=== PATIENT | female | born 1970 | race African-American/Black ===

== ENCOUNTER 2023-12-13 13:25 | Outpatient (CLI) | payer BC, SELFPAY ==
--- NOTE | ~2023-12-13 | XR_ITS ---
XR shoulder RT min 2V Ordering provider: Rodrick Jean MD History: . M25.511 - Pain in right shoulder . Comparison: None. FINDINGS: BONES: Lucency seen in the subcapital area of the humerus which may indicate a fracture. 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 Longitudinal Lucency also seen in the humerus which may indicate a fracture. Fracture of the posterior glenoid is also noted. No dislocati on. JOINT SPACES: The acromioclavicular joint is normal. The glenohumeral joint is normal. SOFT TISSUES: Normal. IMPRESSION: Transverse and longitudinal lucency is in the humeral head which may indicate a fracture. Fracture of the posterior glenoid. Follow-up CT is advised. Reviewed, dictated and finalized at location A.
== END 2023-12-13 13:26 | disposition home or self-care (01) ==
LOC: MICIMG 13:28
PROVIDERS: PCP Emergency Medicine; Visit Provider Emergency Medicine
DX: S42.141A Displaced fracture of glenoid cavity of scapula, right shoulder, initial encounter for closed fracture (principal); X58.XXXA Exposure to other specified factors, initial encounter; M25.511 Pain in right shoulder
CPT/HCPCS: 73030

== ENCOUNTER 2024-06-03 11:51 | Outpatient (CLI) | payer BC, SELFPAY ==
--- NOTE | ~2024-06-03 | XR_ITS ---
XR facial bones min 3V 06/03/2024 12:10 Indication: Headache Procedure: 4 views of the facial Comparison: No prior studies for comparison. Findings: There is no significant mucosal thickening. No air-fluid level. Leftward nasal septal devia tion. Mastoids appear pneumatized. No fracture or traumatic malalignment. No focal soft tissue abnorm ality. Impression: 1: No significant sinus disease. No acute abnormality of the facial bones. Reviewed, dictated and finalized at location B. Impression: 1: No significant sinus disease. No acute abnormality of the facial bones.
== END 2024-06-03 11:52 | disposition home or self-care (01) ==
PROVIDERS: PCP Emergency Medicine; Visit Provider Emergency Medicine
DX: R51.9 Headache, unspecified (principal)
CPT/HCPCS: 70150

== ENCOUNTER 2024-09-01 10:35 | Outpatient (CLI) | payer BC, SELFPAY ==
--- NOTE | ~2024-09-01 | XR_ITS ---
Right Knee Technique: AP and lateral views were obtained. Clinical History: Pain Findings: No fracture or dislocation is seen. Osseous alignment is anatomic. There is minimal spurrin g at the medial joint line. Soft tissues are unremarkable. No joint effusion is seen. Impression: Minimal spurring at the medial joint line Reviewed, dictated and finalized at [facility]. Impression: Minimal spurring at the medial joint line
== END 2024-09-01 10:36 | disposition home or self-care (01) ==
LOC: MICIMG 10:36
PROVIDERS: PCP Emergency Medicine; Visit Provider Emergency Medicine
DX: M25.761 Osteophyte, right knee (principal)
CPT/HCPCS: 73560

== ENCOUNTER 2025-01-30 15:06 | Outpatient (CLI) | payer BC, SELFPAY ==
--- NOTE | ~2025-01-30 | MR_ITS ---
EXAMINATION: MR knee RT wo/w con DATE: 01/30/2025 16:38 INDICATION: Right knee pain TECHNIQUE: Magnetic resonance imaging (MRI) of the right knee was performed without and with 15 mL Multihance intravenous contrast. Sequences included coronal PD-weighted FSE, coronal PD-weighted FS FSE, sagittal T2-weighted FSE, sagittal PD-weighted FS FSE, axial PD weighted fat saturated FSE, axial T1- weighted FS FSE and postcontrast axial, sagittal and coronal T1-weighted FS FSE. COMPARISON: None. FINDINGS: Medial compartment: Medial meniscus is normal. Articular cartilage is normal. Lateral compartment: Lateral meniscus is normal. There is amorphous increased signal at the anterior horn of the lateral meniscus consistent with complex tear with a couple tiny para meniscal cysts along the periphery of the anterior horn. There is a small displaced bucket-handle flap extending anteroposteriorly along the overlying the lateral aspect of the intercondylar eminence. Partial-thickness chondral ulceration along the anterior weightbearing lateral femoral condyle. Additional less severe partial thickness cartilage loss at the central aspect of the lateral tibial plateau and extending along the shoulder the intercondylar eminence. Patellofemoral compartment: There is deep chondral fissuring without degenerative subchondral changes at the medial patellar facet and caudal half of the apical ridge. Additional deep chondral fissure at the inferior aspect of the medial trochlea. Ligaments and tendons: Anterior and posterior cruciate ligaments are normal. The medial collateral ligament and fibular collateral ligament complex are normal. The extensor mechanism is normal. The visualized medial and lateral hamstring tendons as well as the iliotibial band are normal. Fluid: Moderate sized left knee joint effusion. No loose osteochondral bodies identified. There is also a moderate-sized Suarez's cyst measuring 5.8 x 3.2 x 2.1 cm. Osseous/other: Normal marrow signal. No fracture or pathologic marrow replacing process. No abnormally enhancing soft tissue masses. IMPRESSION: 1. Complex tear of the lateral meniscus with macerated appearance to the anterior horn and with small medially displaced bucket-handle flap extending anteroposteriorly along the lateral aspect of the intercondylar eminence. 2. Mild osteoarthritis with moderate grade chondromalacia in the lateral and patellofemoral compartments. 3. Moderate-sized right knee joint effusion and moderate-sized Suarez's cyst. Reviewed, dictated and finalized at location A. [employer] IMPRESSION: 1. Complex tear of the lateral meniscus with macerated appearance to the anteri or horn and with small medially displaced bucket-handle flap extending anteropo steriorly along the lateral aspect of the intercondylar eminence. 2. Mild osteoarthritis with moderate grade chondromalacia in the lateral and pa tellofemoral compartments. 3. Moderate-sized right knee joint effusion and moderate-sized Suarez's cyst.
--- NOTE | ~2025-01-30 | MR_ITS ---
EXAMINATION: MR cervical spine wo/w con DATE: 01/30/2025 16:39 INDICATION: Neck pain. No history of trauma or C-spine surgery. TECHNIQUE: Magnetic resonance imaging (MRI) of the cervical spine was performed including postcontrast series with MultiHance intravenous contrast. Sequences included sagittal T2-weighted FSE, sagittal T2-weighted FS FSE, sagittal T1- weighted FSE, axial MERGE, and axial T2-weighted FSE. COMPARISON: None FINDINGS: No acute bony lesions out cervical vertebrae. Structures of the foramen magnum are normal in the sagittal and axial views. No focal lesions out C2-3 disc. At C3-4 level, mild left foraminal narrowing due to asymmetric bulging annulus. At C4-5 level, mild degenerative disc disease with bulging annulus causing mild right foraminal narrowing. At C5-6 level, degenerative disc disease with bulging annulus causing mild right foraminal narrowing. At C6-7 level, degenerative disc disease with asymmetric bulging annulus to the left causing moderate left foraminal narrowing. C7-T1 disc shows no focal lesions. Cervical spinal cord shows no focal abnormalities. No abnormal enhancement on postcontrast study. IMPRESSION: 1. No acute or focal bone changes of cervical vertebrae. No abnormal enhancement on postcontrast study. 2. Mild degenerative changes are seen at multiple levels as described above in detail at each level. 3. No focal lesions out cervical spinal cord. Reviewed, dictated and finalized at location T. HEAD IMPRESSION: 1. No acute or focal bone changes of cervical vertebrae. No abnormal enhancemen t on postcontrast study. 2. Mild degenerative changes are seen at multiple levels as described above in detail at each level. 3. No focal lesions out cervical spinal cord.
== END 2025-01-30 15:07 | disposition home or self-care (01) ==
PROVIDERS: PCP Emergency Medicine; Visit Provider Emergency Medicine
DX: M25.461 Effusion, right knee (principal); S83.271A Complex tear of lateral meniscus, current injury, right knee, initial encounter; X58.XXXA Exposure to other specified factors, initial encounter; M50.30 Other cervical disc degeneration, unspecified cervical region
CPT/HCPCS: 72156; 73723; A9577